=== PATIENT | male | born 1960 | race Caucasian/White ===

== ENCOUNTER 2024-07-20 13:20 | Emergency (ER) | payer MEDICARE, BC, SELFPAY ==
--- OUTSIDE RECORDS SUMMARY | 2024-07-20 13:23 | XMS_ITS | Clinical Summary ---
Author Organization [facility] Address [address] [place] [address] Care Team Providers Care Director Experimental Medicine Name Role Phone Juan Lombardi DO Primary Care Provide r Allergies No known active allergies Medications aspirin (ECOTRIN) 81 mg enteric coated tablet Take 81 mg by mouth once daily. 0 Active atorvastatin (LIPITOR) 20 mg tabletIndications: Other hyperlipidemia Take 1 Tablet (20 mg) by mouth once daily. 90 Tablet 3 5 Active lisinopriL (PRINIVIL; ZESTRIL) 40 mg tabletIndications: Essential (primary) hypertension Take 1 Tablet (40 mg) by mouth once daily. 90 Tablet 3 5 Active sertraline (ZOLOFT) 50 mg tabletIndications: Generalized anxiety disorder Take 1 Tablet (50 mg) by mouth once daily. 90 Tablet 3 5 Active amLODIPine (NORVASC) 5 mg tabletIndications: Essential (primary) hypertension Take 1 Tablet (5 mg) by mouth once daily. 90 Tablet 3 5 Active amLODIPine (NORVASC) 5 mg tabletIndications: Essential (primary) hypertension Take 1 Tablet (5 mg) by mouth once daily. 90 Tablet 3 5 07/06/19 25 Discontinu ed(Reorder (E-cancel not sent)) Active Problems Problem Noted Date Diagnosed Date Colon polyp 07/21/2023 Overview (07/21/2023): Colonoscopy 06/2023 2-TA, repeat in 5 years Hyperlipidemia 11/27/2020 Generalized anxiety disorder 11/27/2020 Essential (primary) hypertension 11/27/2020 Abnormal results of thyroid function studies 03/2020 Precordial pain 01/05/2020 Mixed hyperlipidemia 10/01/2018 Obstructive sleep apnea (adult) (pediatric) 03/22 Erectile dysfunction 04/18/2016 Kidney stones 04/16/2016 History of prostate cancer 11/07/2015 Other hyperlipidemia 11/07/2015 Encounters Date Type Department Care Team Description 07/20/2024 Nurse Triage [facility] [address] [place] [phone] Juan Lombardi, Arm Pain/problem 07/05/2024 Telephone [facility] [id number] [place] [phone] Juan Lombardi, Refill Request 07/05/2024 Refill [facility] [id number] [place] [phone] Juan Lombardi, Refill Request (Amlodipine) 06/29/2024 Refill [facility] [id number] [place] [phone] Juan Lombardi, Refill Request (Amlodipine) 05/25/2024 11:00 AM BIZTALK ADMINISTRATOR Office Visit [facility] [address] [place] [phone] Juan Lombardi, Medicare ANNUAL (subsequent) Visit (Not fasting- Gwinner juice in the morning- The patient reports having a lack of energy. No other concerns noted. ) 05/24/2024 Travel 05/04/2024 Refill [facility] [id number] [place] [phone] Juan Lombardi, Refill Request (Atorvastatin, Amlodipine) 04/28/[address] [place] [address] Juan Lombardi, DO Refill Request (Lisinopril) from Last 3 Months Immunizations Immunization Administration Dates Next Due Influenza, IIV3 (Age 6-35 mos) 05/13/2013 Influenza, IIV4 01/05/2020 Tdap 01/05/2020 Family History Medical History Relation Name Comments Cancer-prostate Father Relation Name Status Comments Father Mother Social History Tobacco Use Types Packs/Day Years Used Date Smoking Tobacco: Never Smokeless Tobacco: Never Alcohol Use Standard Drinks/Week Comments Yes 6 (1 standard drink = 0.6 oz pure alcohol) 7 or 8 drinks a week on average PHQ-2 Answer Date Recorded PHQ-2 TOTAL SCORE 1 05/25/2024 Social Connections Answer Date Recorded Do you often feel lonely or isolated from those around you? 0 05/24/2024 Financial Resource Strain Answer Date R ecorded Difficulty of Paying Living Expenses 3 05/24/2024 Difficulty of Paying Living Expenses Not on file 05/24/2024 Food Insecurity Answer Date Recorded Do you worry your food will run out before you are able to buy more? 1 05/24/2024 Transportation Needs Answer Date Record ed Does lack of transportation keep you from medica l appointments? 1 05/24/2024 Does lack of transportation keep you from work, meetings or getting things that you need? 1 05/24/2024 Housing Stability Answer Date Recorded What is your housing situation today? 1 05/24/2024 Utilities Answer Date Recorded Do you have trouble paying f or utilities (for example, heat, electricity, water, phone)? 1 05/24/2024 Sex and Gender Information Value Date Recorded Sex Assigned at Male 03/21/2023 10:44 PM BIZTALK ADMINISTRATOR Legal Sex Male 8:37 AM BIZTALK ADMINISTRATOR Gender Identity Male 03/21/2023 10:44 PM BIZTALK ADMINISTRATOR Sexual Orientation Straight 03/21/2023 10 :44 PM BIZTALK ADMINISTRATOR Obstetrics History Last Filed Vital Signs Vital Sign Reading Time Taken Comments Blood Pressure 128/80 05/25/2024 11:16 AM BIZTALK ADMINISTRATOR Pulse 68 05/25/2024 11:16 AM BIZTALK ADMINISTRATOR Temperature - - Respiratory Rate 18 07/17/2023 3:48 PM CDT Oxygen Saturation 98% 05/25/2024 11:16 AM BIZTALK ADMINISTRATOR Inhaled Oxygen Concentration - - Weight 123.8 kg (273 lb) 05/25/2024 11:16 AM BIZTALK ADMINISTRATOR Height 184.2 cm (6' 0.5) 05/25/2024 11:16 AM CS T Body Mass Index 36.52 05/25/2024 11:16 AM BIZTALK ADMINISTRATOR Plan of Treatment Upcoming Encounters Date Type Department Care Team (Late st Contact Info) Description 08/03/2024 11:00 AM CDT Office Visit [facility] [address] [place] [phone] [place] [address] [place] [address] Health Maintenance Due Date Last Done Comments Pneumococcal series for age 50+ (1 of 1 - PCV) 2009 Zoster (shingles) series for age 50+ (1 of 2) 2009 COVID-19 vaccine series ( - season) 2023 Influenza Vaccine (Season Ended) 2024 01/05/20 20, 05/13/2013 BMI (ht and wt on same day) for age 18+ 05/25/2025 05/25/2024, 07/08/2023, 03/25/2023, Additional history exists Depression screening for age 12+ 05/25/2025 05/25/2024, 05/25/2024, 03/25/2023, Additional history exists Medicare Wellness for age 65+ 05/26/2025 05/25/2024 Colonoscopy through age 75 07/16/202807/16, 07/17/2023, 07/17/2023, Additional history exists Lipids for age 45-75 05/25/2029 05/25/2024, 03/25/2023, 2022, Additional history exists Tetanus booster 01/04/2030 01/05/2020 RSV vaccine for adults or (1 - 1-dose 75+ series) 2034 Tdap Completed 01/05/2020 Hepatitis C screening for ag e 18-79 Completed 01/11/2021 HIV for age 15-65 Completed 2022 Procedures Procedure Name Priority Date/Time Associated Diagnosis Comments CBC W PLT NO DIFF Routine 05/25/2024 12: 00 AM BIZTALK ADMINISTRATOR Welcome to Medicare preventive visit COMP METABOLIC PANEL Routine 05/25/2024 12:00 AM BIZTALK ADMINISTRATOR Welcome to Medicare preventive visit LIPID PANEL W REFLEX MEASURED LDL Routine 05/25/2024 12:00 AM BIZTALK ADMINISTRATOR Other hyperlipidemia PSA TOTAL Routine 05/25/2024 12:00 AM BIZTALK ADMINISTRATOR History of prostate cancer COLONOSCOPY SCREENING Routine 07/17/2023 2:17 PM CDT History of colon polyps ANTI HIV 1/2 Routine 2022 12:35 PM BIZTALK ADMINISTRATOR Screening for HIV (human immunodeficiency virus) ANTI HCV Routine 01/11/2021 11:25 AM CDT Need for hepatitis C screening test from Last 3 Months or Most Recently Relevant to Health Maintenance Results * (ABNORMAL) LIPID PANEL W REFLEX MEASURED LDL (05/25/2024 12:00 AM BIZTALK ADMINISTRATOR) CHOLESTEROL, TOTAL 185 <200 mg/dL [facility] HDL CHOLESTEROL 43 > OR = 40 mg/dL [facility] TRIGLYCERIDES 173(H) <150 mg/dL [facility] LDL-CHOLESTEROL 113(H) mg/dL (calc) [facility] Comment: Reference range: <100 Desirable range <100 mg/dL for primary prevention; <70 mg/dL for patients with CHD or diabetic patients with > or = 2 CHD risk factors. LDL-C is now calculated using the Radha calculation, which is a validated novel method providing better accuracy than the Friedewald equation in the estimation of LDL-C. Jon PERALTA et al. OPAL. 2013;310(19): 3990-4611 (http://education.[employer].IVFXPERT/faq/QZS595) CHOL/HDLC RATIO 4.3 <5.0 (calc) [facility] NON HDL CHOLESTEROL 142(H) <130 mg/dL (calc) [facility] Comment: For patients with diabetes plus 1 major ASCVD risk factor, treating to a non-HDL-C goal of <100 mg/dL (LDL-C of <70 mg/dL) is considered a therapeutic option. Blood BLOOD SPECIMEN / Unknown 05/25/2024 05/25/2024 11:59 AM BIZTALK ADMINISTRATOR Narrative [facility] - 05/26/2024 5:36 AM BIZTALK ADMINISTRATOR MULTIPLE TESTING PRIORITIES; ROUTINE TESTING TO FOLLOW. [employer] [facility] DO CHEMISTRY Final Result [facility] [address] [place] [address], [facility] [address] [place] [address] * CBC W PLT NO DIFF (05/25/2024 12:00 AM BIZTALK ADMINISTRATOR) WHITE BLOOD CELL COUNT 5.9 3.8 - 10.8 Thousand/u L [facility] (U RED BLOOD CELL COUNT 4.66 4.20 - 5.80 Million/uL [facility] (U HEMOGLOBIN 14.8 13.2 - 17.1 g/dL [facility] (U HEMATOCRIT 43.7 38.5 - 50.0 % [facility] (U MCV 93.8 80.0 - 100.0 fL [facility] (U MCH 31.8 27.0 - 33.0 pg [facility] (U MCHC 33.9 32.0 - 36.0 g/dL [facility] (U Comment: For adults, a slight decrease in the calculated MCHC value (in the range of 30 to 32 g/dL) is most likely not clinically significant; however, it should be interpreted with caution in correlation with other red cell parameters and the patient's clinical condition. RDW 12.6 11.0 - 15.0 % [facility] (U PLATELET COUNT 206 140 - 400 Thousand/u L [facility] (U MPV 8.5 7.5 - 12.5 fL [facility] (U Blood BLOOD SPECIMEN / Unknown 05/25/2024 05/25/2024 12:00 PM BIZTALK ADMINISTRATOR Narrative [facility] - 05/25/2024 12:41 PM BIZTALK ADMINISTRATOR SPLIT 05/25/2024 FROM [id number] [employer] [facility]) DO HEMATOLOGY Final Result [facility] [address] [place] [address], [facility] (U [address] [place] [address] * PSA TOTAL (05/25/2024 12:00 AM BIZTALK ADMINISTRATOR) [facility] PSA, TOTAL <0.04 < OR = 4.00 ng/mL [facility] Comment: The total PSA value from this assay system is standardized against the WHO standard. The test result will be approximately 20% lower when compared to the equimolar-standardized total PSA (Dejon Taft). Comparison of serial PSA results should be interpreted with this fact in mind. This test was performed using the Siemens chemiluminescent method. Values obtained from different assay methods cannot be used interchangeably. PSA levels, regardless of value, should not be interpreted as absolute evidence of the presence or absence of disease. Blood BLOOD SPECIMEN / Unknown 05/25/2024 05/25/2024 11:59 AM BIZTALK ADMINISTRATOR Narrative [facility] - 05/26/2024 4:39 AM BIZTALK ADMINISTRATOR MULTIPLE TESTING PRIORITIES; ROUTINE TESTING TO FOLLOW. [employer] DO CHEMISTRY Final Result [employer] [facility] [address] [place] [address], [facility] [address] [place] [address] * COMP METABOLIC PANEL (05/25/2024 12:00 AM BIZTALK ADMINISTRATOR) GLUCOSE 96 65 - 99 mg/dL [facility] Comment: Fasting reference interval UREA NITROGEN (BUN) 17 7 - 25 mg/dL [facility] CREATININE 0.84 0.70 - 1.35 mg/dL [facility] EGFR 97 > OR = 60 mL/min/1. 73m2 [facility] BUN/CREATININE RATIO SEE NOTE: 6 - (calc) [facility] Comment: Not Reported: BUN and Creatinine are within reference range. SODIUM 142 135 - 146 mmol/L [facility] POTASSIUM 3.8 3.5 - 5.3 mmol/L [facility] CHLORIDE 107 98 - 110 mmol/L [facility] CARBON DIOXIDE 21 20 - 32 mmol/L [facility] CALCIUM 9.4 8.6 - 10.3 mg/dL [facility] PROTEIN, TOTAL 7.3 6.1 - 8.1 g/dL [facility] ALBUMIN 4.7 3.6 - 5.1 g/dL [facility] GLOBULIN 2.6 1.9 - 3.7 g/dL (calc) [facility] ALBUMIN/GLOBULIN RATIO 1.8 1.0 - 2.5 (calc) [facility] BILIRUBIN, TOTAL 0.7 0.2 - 1.2 mg/dL [facility] ALKALINE PHOSPHATASE 72 35 - 144 U/L [facility] AST 25 10 - 35 U/L [facility] ALT 24 9 - 46 U/L [facility] Blood BLOOD SPECIMEN / Unknown 05/25/2024 05/25/2024 11:59 AM BIZTALK ADMINISTRATOR Narrative [facility] - 05/26/2024 5:36 AM BIZTALK ADMINISTRATOR MULTIPLE TESTING PRIORITIES; ROUTINE TESTING TO FOLLOW. [facility] Valenzuela Steichen DO CHEMISTRY Final Result [facility] [address] [place] [address], [facility] [address] [place] [address] * COLONOSCOPY (07/17/2023 2:27 PM CDT) 07/17/2023 2:27 PM CDT Narrative Transcriptions Jon Olivier MD - 07/17/2023 3:35 PM CDT Patient Name: Baldev Field Procedure Date: 07/17/2023 Gender: Male Date of : 1960 Admit Type: Outpatient Procedure: Colonoscopy Proceduralist: Jon Olivier MD , Margareth Robert, RN(Nurse), Tania Cortes (Nurse) Referring MD: Juan Lombardi Indications/Pre-Op Diagnosis: High risk colon cancer surveillance:Personal history of colonic polyps, Last colonoscopy: date unknown (unable to locate lastcolonoscopy report) Medications: Fentanyl 100 micrograms IV, Midazolam 4 mgIV, The level of sedation administered wasmoderate Procedure Description: The patient had risks, benefits and alternatives explained to andgave informed consent. The patient had a stable cardiopulmonary status and judged an adequate candidate for conscious sedation. The endoscope [id number] was passed through the anus andadvanced to the cecum, identified by appendiceal orifice and ileocecal valve.The colonoscopy was performed without difficulty. The patient toleratedthe procedure well. The quality of the bowel preparation was good. The ileocecal valve, appendiceal orifice, and rectum were photographed. Complications: No immediate complications. Estimated Blood Loss & Specimen: Estimated blood loss: none. Specimen collected - Yes and sent to Laboratory Findings: The perianal and digital rectal examinations were normal. A 2 mm polyp was found in the ascending colon. The polyp was sessile. The polyp was removed with a cold biopsy forceps. Resection and retrieval were complete. A 3 mm polyp was found in the transverse colon. The polyp wassessile. The polyp was removed with a cold snare. Resection and retrieval were complete. The exam was otherwise without abnormality on direct and retroflexion views. Impressions/Post-Op Diagnosis: - One 2 mm polyp in the ascending colon, removed with a cold biopsy forceps. Resected and retrieved. - One 3 mm polyp in the transverse colon, removed with a cold snare. Resected and retrieved. - The examination was otherwise normal on direct and retroflexionviews. Recommendation: - Patient has a contact number available for emergencies. The signsand symptoms of potential delayed complications were discussed with the patient. Return to normal activities tomorrow. Written discharge instructions were provided to the patient. - Resume previous diet. - Continue present medications. - Await pathology results. - Repeat colonoscopy is recommended. The colonoscopy date will be determined after pathology results from today's exam become available for review. Moderate Sedation: A time out was performed before the procedure. Moderate (conscious) sedation was administered by the endoscopy nurse and supervised bythe endoscopist. The following parameters were monitored: oxygensaturation, heart rate, blood pressure, EKG, CO2, respiratory rate, adequacy of pulmonary ventilation and reponse to care. Please refer to the patient's medical record flowsheets and nursing notes for moderate sedation details. Total physician intraservice time was 21 minutes. Jon Olivier MD 07/17/2023 3:35:32 PM This report has been signed electronically. Note Initiated On: 07/17/2023 2:27 PM Procedure Code(s): --- Professional --- 83286, Colonoscopy, flexible; with removalof tumor(s), polyp(s), or other lesion(s) bysnare technique 20715, 59, Colonoscopy, flexible; withbiopsy, single or multiple Diagnosis Code(s): --- Professional --- Z86.010, Personal history of colonicpolyps D12.2, Benign neoplasm of ascending colon D12.3, Benign neoplasm of transverse colon (hepatic flexure or splenic flexure) CPT copyright 2021 [employer]. All rights reserved. The codes documented in this report are preliminary and upon hole digger truck driver reviewmay be revised to meet current compliance requirements. Scope In: 3:08:32 PM Scope Withdrawal Time 0 hours 12 minutes 23 seconds Scope Out: 3:25:26 PM Jon Olivier MD PROCEDURE ORD Final Res ult * ANTI HIV 1/2 [35481.0] (2022 12:35 PM BIZTALK ADMINISTRATOR) HIV-1/HIV-2 ANTIBODY Non-Reacti ve Non-Reacti ve 03/19/2022 11:22 AM BIZTALK ADMINISTRATOR [facility] Comment:HIV-1 p24 and HIV-1/ HIV-2 Ab not detected. Blood BLOOD SPECIMEN / Unknown Venipuncture / Unknown 2022 12:35 PM BIZTALK ADMINISTRATOR 2022 12:35 PM BIZTALK ADMINISTRATOR Juan Lombardi DO SEND OUTS Final Result [facility] [address] [place] [address], * ANTI HCV (01/11/2021 11:25 AM CDT) HEPATITIS C ANTIBODY Non-React jose Non-React jose 01/11/2021 10:36 PM CDT [facility] Comment:Antibodies to HCV no t detected; does not exclude the possibility of exposure to HCV. Blood BLOOD SPECIMEN / Unknown Venipuncture / Unknown 01/11/2021 11:25 AM CDT 01/11/2021 11:26 AM CDT Juan Lombardi DO SEND OUTS Final Result [facility] [address] [place] [address], [place] from Last 3 Months or Most Recently Relevant to Health Maintenance Insurance MEDICARE [place] ONLY Care Teams Director Experimental Medicine Relationship Specialty [place] [address] [place] [address] PCP - General Family Practice 01/10/21
[2024-07-20 14:18] VITALS: BP 206/113; PULSE 67; RESP 18; TEMP 37; O2SAT 97; BMI 36.3
--- NOTE | 2024-07-20 15:34 | ED.GENADULT ---
HPI - General Adult General Chief complaint: Extremity Pain/Injury, Upper Stated complaint: possible blood clot R arm Time Seen by Provider: 07/20/24 15:25 History of Present Illness HPI narrative: Patient presents to the emergency department complaining of right arm pain. Patient states the pain started 07/09. Patient states he was helping his son move and the next day noticed some right arm pain. Arm pain is intermittent and is concentrated in the antecubital. Pain gets better with heat and Tylenol. This pain is worse when he rotates his arm over. He is able to move his arm otherwise without pain. Triage nurse sent him to ER for blood clot rule out. 64-year-old man presenting to the emergency department with concern of right arm pain. He has pain particularly with rotation of the forearm in the anterior upper forearm just below the antecubital fossa and sometimes will get a shoot of pain that goes down his arm. He had been helping his son move little over week ago in in the next day or so noted more pain in this area. Does not recall specific injury. Just been moving some boxes and none were particularly heavy. He has been applying heat and acetaminophen. The former seems to help a little bit. Not sure that it is swollen. Related Data Home Medications ?Medication ?Instructions ?Recorded ?Confirmed atorvastatin 20 mg tablet 20 mg PO 04/08/22 06/13/24 lisinopril 10 mg tablet 10 mg PO QDAY 04/08/22 07/20/24 sertraline 50 mg tablet 50 mg PO QDAY 04/08/22 07/20/24 amlodipine 5 mg tablet 5 mg PO DAILY 11/21/22 07/20/24 Allergies Allergy/AdvReac Type Severity Reaction Status Date / Time No Known Drug Allergies Allergy Verified 07/20/24 14:28 Review of Systems Status of ROS: Reports: 6 or more systems reviewed and unremarkable except as noted in History and below [facility] Social History Smoking Status: Never smoker How often do you have a drink containing alcohol: 4 or more times a week How many standard drinks containing alcohol do you have on a typical day: 1 or 2 AUDIT-C Alcohol total score: 4 Non-prescribed substance use: denies use Exam Narrative: Exam Narrative: Pleasant. NAD. Good energy. Tall. Moving all extremities without difficulty. Does not have discrete pain to palpation over the lateral or medial epicondyle of the right elbow. Vaguely reproducible pain to deep palpation in the antecubital fossa; just a little distal to that. Pain seems to be most reproduced with pronation of the forearm a little bit with supination. 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 No swelling or distal edema. No areas of erythema. Pain is not reproducible to palpation in the ulnar groove. Is well-perfused distally. Const: Vital Signs, click to edit/add: Vital Signs - 24 hr 07/20/24 14:18 Temperature 98.6 F Pulse Rate [Right Pulse Oximeter] 67 Respiratory Rate 18 Blood Pressure [Le ft Forearm] 206/113 H Pulse Oximetry 97 Oxygen Delivery Me thod Room Air Documenting provider has reviewed patient's vital signs: yes Course Vital Signs Vital signs: Initial Vital Signs Temperature 98.6 F 07/20/24 14:18 Temperature Source Temporal Artery Scan 07/20/24 14:18 Pulse Rate 67 07/20/24 14:18 Pulse Rhythm Regular 07/20/24 14:18 Pulse Strength 3+ Normal 07/20/24 14:18 Respiratory Rate 18 07/20/24 14:18 Blood Pressure 206/113 H 07/20/24 14:18 Blood Pressure Mean 144 H 07/20/24 14:18 Blood Pressure Position Sitting 07/20/24 14:18 Pulse Oximetry 97 07/20/24 14:18 Oxygen Delivery Method Room Air 07/20/24 14:18 Vital Signs Temperature 98.6 F 07/20/24 14:18 Pulse Rate 67 07/20/24 14:18 Respiratory Rate 18 07/20/24 14:18 Blood Pressure 206/113 H 07/20/24 14:18 Pulse Oximetry 97 07/20/24 14:18 Oxygen Delivery Method Room Air 07/20/24 14:18 Temperature 98.6 F 07/20/24 14:18 Pulse Rate 67 07/20/24 14:18 Respiratory Rate 18 07/20/24 14:18 Blood Pressure 206/113 H 07/20/24 14:18 Pulse Oximetry 97 07/20/24 14:18 Oxygen Delivery Method Room Air 07/20/24 14:18 Medical Decision Making MDM Narrative Medical decision making narrative: Symptoms seem inconsistent with medial or lateral epicondylitis which is what I was anticipating. Possible there is an avulsion fracture in here somewhere. Otherwise distant elbow strain/tendinopathy perhaps. Not clearly a capsulitis nor olecranon bursitis. I think unlikely that has a venous thrombus. I do appreciate elevated blood pressure upon arrival here. He acknowledges historical difficulty. Can do an x-ray looking for maybe a radial head fracture though I think this is unlikely or any evidence of an avulsion fracture otherwise. Ordered for ice pack as well. I placed this with an Radu wrap. He clearly prefers heat. I did independently review two-view of the right elbow. There is a spur off the olecranon process. But I do not appreciate other abnormality. Radiology over-read below Indication: MID ANTECUBITAL AND LITTLE DISTAL AREA PAIN, WORSE W/ ROTATION Technique: Right elbow 2 views Comparison: None Findings: Bones: Alignment is normal. No fractures or bone lesions. Medium-sized distal triceps enthesophyte. Joint spaces: Joint spaces are well maintained. No sign of joint effusion. Soft tissues: Unremarkable. Impression: No acute fracture or dislocation. Dictated by Jarod Claire MD @ 07/20/2024 4:24:34 PM We discussed continuing at with the venous ultrasound though mutually agreed to defer if necessary. See patient discharge plan for further discussion I would consider icing your elbow a couple of times daily over the next few days. I like those ice bags with the screw top lids. Fill with ice and water. Can take 400-600 mg ibuprofen 3 times daily maybe with a little food over the next few days. Alternative to that would be up to 375 mg naproxen 2 times daily. Where this arm sling for comfort over this next week. See handout on some stretches or exercises that I think might be helpful. Giving you this handout on elbow sprain for lack of better options. Be seen sooner for marked increase in persistent pain, increasing swelling downstream so to speak. Please follow-up your blood pressure soon in primary care. Medical Records Medical records reviewed: Yes I reviewed the patient's medical records Discharge Plan Discharge Clinical Impression: Elbow pain Patient Disposition: Home, Self-Care Condition: Stable Additional Instructions: I would consider icing your elbow a couple of times daily over the next few days. I like those ice bags with the screw top lids. Fill with ice and water. Can take 400-600 mg ibuprofen 3 times daily maybe with a little food over the next few days. Alternative to that would be up to 375 mg naproxen 2 times daily. Wear this arm sling for comfort over this next week. See handout on some stretches or exercises that I think might be helpful. Giving you this handout on elbow sprain for lack of better options. Be seen sooner for marked increase in persistent pain, increasing swelling downstream so to speak. Please follow-up your blood pressure soon in primary care. Prescriptions: No Action atorvastatin 20 mg tablet 20 mg PO lisinopril 10 mg tablet 10 mg PO QDAY sertraline 50 mg tablet 50 mg PO QDAY amlodipine 5 mg tablet 5 mg PO DAILY Follow Up/Referrals: Provider,Not a Local [Primary Care Provider] - Stand Alone Forms: Experience Headphones Info Instructions
--- NOTE | 2024-07-20 15:52 | CRLHL7_ITS ---
For Patients: As a result of the Century Cures Act, medical imaging exams and procedure reports are released immediately into your electronic medical record. You may view this report before your referring provider. If you have questions, please contact your health care provider. Indication: MID ANTECUBITAL AND LITTLE DISTAL AREA PAIN, WORSE W/ ROTATION Technique: Right elbow 2 views Comparison: None Findings: Bones: Alignment is normal. No fractures or bone lesions. Medium-sized distal triceps enthesophyte. Joint spaces: Joint spaces are well maintained. No sign of joint effusion. Soft tissues: Unremarkable. Impression: No acute fracture or dislocation. Dictated by Jarod Claire MD @ 07/20/2024 4:24:34 PM (Electronically Signed)
--- OUTSIDE RECORDS SUMMARY | 2024-07-20 16:18 | XMS_ITS | Clinical Summary ---
Author Organization [facility] Address [address] [place] [id number] Care Team Providers Care Flash Developer Name Role Phone Juan Lombardi DO Primary [...] Department Care Team Description 07/20/2024 Nurse Triage [facility] [id number] [place] [phone] Juan Lombardi, Arm Pain/problem 07/05/2024 Telephone [facility] [id number] [place] [phone] Juan Lombardi, Refill Request 07/05/2024 Refill [facility] [id number] [place] [phone] Juan Lombardi, Refill Request (Amlodipine) 06/29/2024 Refill [facility] [id number] [place] [phone] Juan Lombardi, Refill Request (Amlodipine) 05/25/2024 11:00 AM UPHOLSTERY AUTO TRIMMER Office Visit [facility] [id number] [place] [phone] Juan Lombardi, Medicare ANNUAL (subsequent) Visit (Not fasting- [place] juice in the morning- The patient reports having a lack of energy. No other concerns noted. ) 05/24/2024 Travel 05/04/2024 Refill [facility] [address] [place] [phone] Juan Lombardi, Refill Request (Atorvastatin, Amlodipine) 04/28/[address] [place] [address] Juan Lombardi, DO Refill Request (Lisinopril) from [...] Sex Assigned at Male 03/21/2023 10:44 PM UPHOLSTERY AUTO TRIMMER Legal Sex Male 8:37 AM UPHOLSTERY AUTO TRIMMER Gender Identity Male 03/21/2023 10:44 PM UPHOLSTERY AUTO TRIMMER Sexual Orientation Straight 03/21/2023 10 :44 PM UPHOLSTERY AUTO TRIMMER Obstetrics History Last Filed Vital Signs Vital Sign Reading Time Taken Comments Blood Pressure 128/80 05/25/2024 11:16 AM UPHOLSTERY AUTO TRIMMER Pulse 68 05/25/2024 11:16 AM UPHOLSTERY AUTO TRIMMER Temperature - - Respiratory Rate 18 07/17/2023 3:48 PM CDT Oxygen Saturation 98% 05/25/2024 11:16 AM UPHOLSTERY AUTO TRIMMER Inhaled Oxygen Concentration - - Weight 123.8 kg (273 lb) 05/25/2024 11:16 AM UPHOLSTERY AUTO TRIMMER Height 184.2 cm (6' 0.5) 05/25/2024 11:16 AM CS T Body Mass Index 36.52 05/25/2024 11:16 AM UPHOLSTERY AUTO TRIMMER Plan of Treatment Upcoming Encounters Date Type Department Care Team (Late st Contact Info) Description 08/03/2024 11:00 AM CDT Office Visit [facility] [address] [place] [phone] [place] [address] [place] [address] Health Maintenance Due Date Last [...] NO DIFF Routine 05/25/2024 12: 00 AM UPHOLSTERY AUTO TRIMMER Welcome to Medicare preventive visit COMP METABOLIC PANEL Routine 05/25/2024 12:00 AM UPHOLSTERY AUTO TRIMMER Welcome to Medicare preventive visit LIPID PANEL W REFLEX MEASURED LDL Routine 05/25/2024 12:00 AM UPHOLSTERY AUTO TRIMMER Other hyperlipidemia PSA TOTAL Routine 05/25/2024 12:00 AM UPHOLSTERY AUTO TRIMMER History of prostate cancer COLONOSCOPY SCREENING Routine 07/17/2023 2:17 PM CDT History of colon polyps ANTI HIV 1/2 Routine 2022 12:35 PM UPHOLSTERY AUTO TRIMMER Screening for HIV (human immunodeficiency virus) ANTI HCV Routine 01/11/2021 11:25 AM CDT Need for hepatitis C screening test from Last 3 Months or Most Recently Relevant to Health Maintenance Results * (ABNORMAL) LIPID PANEL W REFLEX MEASURED LDL (05/25/2024 12:00 AM UPHOLSTERY AUTO TRIMMER) CHOLESTEROL, TOTAL 185 <200 mg/dL [facility] HDL CHOLESTEROL 43 > OR = 40 mg/dL [email or web address] TRIGLYCERIDES 173(H) <150 mg/dL [facility] [...] LDL-C. Jon PERALTA et al. OPAL. 2013;310(19): 0560-1982 (http://education.Netstory.Ezuza/faq/KLL355) CHOL/HDLC RATIO 4.3 <5.0 (calc) [facility] NON HDL CHOLESTEROL 142(H) <130 mg/dL (calc) [facility] Comment: For patients with diabetes plus 1 major ASCVD risk factor, treating to a non-HDL-C goal of <100 mg/dL (LDL-C of <70 mg/dL) is considered a therapeutic option. Blood BLOOD SPECIMEN / Unknown 05/25/2024 05/25/2024 11:59 AM UPHOLSTERY AUTO TRIMMER Narrative [facility] - 05/26/2024 5:36 AM UPHOLSTERY AUTO TRIMMER MULTIPLE TESTING PRIORITIES; ROUTINE TESTING TO FOLLOW. [facility] DO CHEMISTRY Final Result [facility] [address] [place] [address], [facility] [address] [place] [address] * CBC W PLT NO DIFF (05/25/2024 12:00 AM UPHOLSTERY AUTO TRIMMER) WHITE BLOOD CELL COUNT 5.9 3.8 - 10.8 Thousand/u L [facility] (U RED BLOOD CELL COUNT 4.66 4.20 - 5.80 Million/uL [facility] (U HEMOGLOBIN 14.8 13.2 - 17.1 g/dL [facility] (U HEMATOCRIT 43.7 38.5 - 50.0 % [facility] (U MCV 93.8 80.0 - 100.0 fL [facility] (U MCH 31.8 27.0 - 33.0 pg [facility] (U MCHC 33.9 32.0 - 36.0 g/dL [facility] (U Comment: For adults, a slight decrease in the calculated MCHC value (in the range of 30 to 32 g/dL) is most likely not clinically significant; however, it should be interpreted with caution in correlation with other red cell parameters and the patient's clinical condition. RDW 12.6 11.0 - 15.0 % [facility] (U PLATELET COUNT 206 140 - 400 Thousand/u L [facility] (U MPV 8.5 7.5 - 12.5 fL [facility] (U Blood BLOOD SPECIMEN / Unknown 05/25/2024 05/25/2024 12:00 PM UPHOLSTERY AUTO TRIMMER Narrative [facility] - 05/25/2024 12:41 PM UPHOLSTERY AUTO TRIMMER SPLIT 05/25/2024 FROM [id number] [facility] DO HEMATOLOGY Final Result [facility] [address] [place] [address], [facility] (U [address] [place] [address] * PSA TOTAL (05/25/2024 12:00 AM UPHOLSTERY AUTO TRIMMER) [facility] PSA, TOTAL <0.04 < OR = 4.00 ng/mL [facility] Comment: The total PSA value from this assay system is standardized against the WHO standard. The test result will be approximately 20% lower when compared to the equimolar-standardized total PSA ([facility]). Comparison of serial PSA results should be interpreted with this fact in mind. This test was performed using the Siemens chemiluminescent method. Values obtained from different assay methods cannot be used interchangeably. PSA levels, regardless of value, should not be interpreted as absolute evidence of the presence or absence of disease. Blood BLOOD SPECIMEN / Unknown 05/25/2024 05/25/2024 11:59 AM UPHOLSTERY AUTO TRIMMER Narrative [facility] - 05/26/2024 4:39 AM UPHOLSTERY AUTO TRIMMER MULTIPLE TESTING PRIORITIES; ROUTINE TESTING TO FOLLOW. [employer] DO CHEMISTRY Final Result [employer] [facility] [address] [place] [address], [facility] [address] [place] [address] * COMP METABOLIC PANEL (05/25/2024 12:00 AM UPHOLSTERY AUTO TRIMMER) GLUCOSE 96 65 - 99 mg/dL [facility] [...] SPECIMEN / Unknown 05/25/2024 05/25/2024 11:59 AM UPHOLSTERY AUTO TRIMMER Narrative [facility] - 05/26/2024 5:36 AM UPHOLSTERY AUTO TRIMMER MULTIPLE TESTING PRIORITIES; ROUTINE TESTING TO FOLLOW. [facility] Valenzuela Steichen DO CHEMISTRY Final Result [facility] [address] [place] [address], [facility] [address] [place] [address] * COLONOSCOPY (07/17/2023 2:27 PM CDT) 07/17/2023 [...] adequate candidate for conscious sedation. The endoscope [id number] was passed through the anus andadvanced to [...] 2:27 PM Procedure Code(s): --- Professional --- 00848, Colonoscopy, flexible; with removalof tumor(s), polyp(s), or other lesion(s) bysnare technique 48371, 59, Colonoscopy, flexible; withbiopsy, single or multiple Diagnosis Code(s): --- Professional --- Z86.010, Personal history of colonicpolyps D12.2, Benign neoplasm of ascending colon D12.3, Benign neoplasm of transverse colon (hepatic flexure or splenic flexure) CPT copyright 2021 [employer]. All rights reserved. The codes documented in this report are preliminary and upon theatre professor reviewmay be revised to meet current compliance requirements. Scope In: 3:08:32 PM Scope Withdrawal Time 0 hours 12 minutes 23 seconds Scope Out: 3:25:26 PM Jon Olivier MD PROCEDURE ORD Final Res ult * ANTI HIV 1/2 [21438.0] (2022 12:35 PM UPHOLSTERY AUTO TRIMMER) HIV-1/HIV-2 ANTIBODY Non-Reacti ve Non-Reacti ve 03/19/2022 11:22 AM UPHOLSTERY AUTO TRIMMER [facility] Comment:HIV-1 p24 and HIV-1/ HIV-2 Ab not detected. Blood BLOOD SPECIMEN / Unknown Venipuncture / Unknown 2022 12:35 PM UPHOLSTERY AUTO TRIMMER 2022 12:35 PM UPHOLSTERY AUTO TRIMMER Juan Lombardi DO SEND OUTS Final Result [facility] [address] [place] [address], * ANTI HCV (01/11/2021 11:25 AM CDT) HEPATITIS C ANTIBODY Non-React jose Non-React jose 01/11/2021 10:36 PM CDT [facility] Comment:Antibodies to HCV no t detected; does not exclude the possibility of exposure to HCV. Blood BLOOD SPECIMEN / Unknown Venipuncture / Unknown 01/11/2021 11:25 AM CDT 01/11/2021 11:26 AM CDT Juan Lombardi DO SEND OUTS Final Result [facility] [address] [place] [address], [place] from Last 3 Months or Most Recently Relevant to Health Maintenance Insurance MEDICARE [place] ONLY Care Teams Flash Developer Relationship Specialty [place] [id number] [place] [address] PCP - General Family Practice 01/10/21
== END 2024-07-20 17:23 | disposition home or self-care (01) ==
PROVIDERS: Emergency Provider Family Medicine
DX: M25.521 Pain in right elbow (principal); X50.1XXA Overexertion from prolonged static or awkward postures, initial encounter
CPT/HCPCS: 73070; 99283; 99284

== ENCOUNTER 2024-07-27 16:21 | Emergency (ER) | payer MEDICARE, BC, SELFPAY ==
[2024-07-27 16:31] VITALS: BP 166/86; PULSE 74; RESP 18; TEMP 36.7; O2SAT 99; BMI 36.3
--- NOTE | 2024-07-27 16:37 | CRLHL7_ITS ---
For Patients: As a result of the Century Cures Act, medical imaging exams and procedure reports are released immediately into your electronic medical record. You may view this report before your referring provider. If you have questions, please contact your health care provider. INDICATION: Forearm pain, shortness of breath TECHNIQUE: Ultrasound venous duplex upper right extremity. Compression venous exam was performed using godoe-scale, color Doppler, and spectral Doppler imaging. COMPARISON: None. FINDINGS: The right internal jugular, subclavian, and axillary veins are patent with normal waveforms. The brachial, basilic, and cephalic veins are fully compressible. No soft tissue abnormalities seen. IMPRESSION: Normal ultrasound of the right upper extremity veins. Dictated by Boaz Mojica MD @ 07/27/2024 5:44:27 PM (Electronically Signed)
--- OUTSIDE RECORDS SUMMARY | 2024-07-27 16:59 | XMS_ITS | Clinical Summary ---
Author Organization [employer] [facility] Address [address] [place] [address] Care Team Providers Care Yardage Control Operator Name Role Phone Juan Lombardi DO Primary [...] Department Care Team Description 07/20/2024 Nurse Triage [facility] [id number] [place] [phone] Juan Lombardi, Arm Pain/problem 07/05/2024 Telephone [facility] [id number] [place] [phone] Juan Lombardi, Refill Request 07/05/2024 Refill [facility] [id number] [place] [phone] Juan Lombardi, Refill Request (Amlodipine) 06/29/2024 Refill [facility] [id number] [place] [phone] Juan Lombardi, Refill Request (Amlodipine) 05/25/2024 11:00 AM HATCHERY MANAGER Office Visit [facility] [id number] [place] [phone] Juan Lombardi, Medicare ANNUAL (subsequent) Visit (Not fasting- [place] juice in the morning- The patient reports having a lack of energy. No other concerns noted. ) 05/24/2024 Travel 05/04/2024 Refill [facility] [id number] [place] [phone] Juan Lombardi, Refill Request (Atorvastatin, Amlodipine) 04/28/[address] [place] [place] [address] Juan Lombardi, DO Refill Request (Lisinopril) from [...] Sex Assigned at Male 03/21/2023 10:44 PM HATCHERY MANAGER Legal Sex Male 8:37 AM HATCHERY MANAGER Gender Identity Male 03/21/2023 10:44 PM HATCHERY MANAGER Sexual Orientation Straight 03/21/2023 10 :44 PM HATCHERY MANAGER Obstetrics History Last Filed Vital Signs Vital Sign Reading Time Taken Comments Blood Pressure 128/80 05/25/2024 11:16 AM HATCHERY MANAGER Pulse 68 05/25/2024 11:16 AM HATCHERY MANAGER Temperature - - Respiratory Rate 18 07/17/2023 3:48 PM CDT Oxygen Saturation 98% 05/25/2024 11:16 AM HATCHERY MANAGER Inhaled Oxygen Concentration - - Weight 123.8 kg (273 lb) 05/25/2024 11:16 AM HATCHERY MANAGER Height 184.2 cm (6' 0.5) 05/25/2024 11:16 AM CS T Body Mass Index 36.52 05/25/2024 11:16 AM HATCHERY MANAGER Plan of Treatment Upcoming Encounters Date Type Department Care Team (Late st Contact Info) Description 08/03/2024 11:00 AM CDT Office Visit [facility] [address] [place] [phone] [place] [address] [place] [address] Health Maintenance Due Date Last [...] NO DIFF Routine 05/25/2024 12: 00 AM HATCHERY MANAGER Welcome to Medicare preventive visit COMP METABOLIC PANEL Routine 05/25/2024 12:00 AM HATCHERY MANAGER Welcome to Medicare preventive visit LIPID PANEL W REFLEX MEASURED LDL Routine 05/25/2024 12:00 AM HATCHERY MANAGER Other hyperlipidemia PSA TOTAL Routine 05/25/2024 12:00 AM HATCHERY MANAGER History of prostate cancer COLONOSCOPY SCREENING Routine 07/17/2023 2:17 PM CDT History of colon polyps ANTI HIV 1/2 Routine 2022 12:35 PM HATCHERY MANAGER Screening for HIV (human immunodeficiency virus) ANTI HCV Routine 01/11/2021 11:25 AM CDT Need for hepatitis C screening test from Last 3 Months or Most Recently Relevant to Health Maintenance Results * (ABNORMAL) LIPID PANEL W REFLEX MEASURED LDL (05/25/2024 12:00 AM HATCHERY MANAGER) CHOLESTEROL, TOTAL 185 <200 mg/dL [facility] HDL CHOLESTEROL 43 > OR = 40 mg/dL [facility] TRIGLYCERIDES 173(H) <150 mg/dL [facility] LDL-CHOLESTEROL 113(H) mg/dL (calc) [facility] [...] LDL-C. Jon PERALTA et al. OPAL. 2013;310(19): 8143-3592 (http://education.sofatutor.The Box/faq/YDD243) CHOL/HDLC RATIO 4.3 <5.0 (calc) [facility] NON HDL CHOLESTEROL 142(H) <130 mg/dL (calc) [facility] Comment: For patients with diabetes plus 1 major ASCVD risk factor, treating to a non-HDL-C goal of <100 mg/dL (LDL-C of <70 mg/dL) is considered a therapeutic option. Blood BLOOD SPECIMEN / Unknown 05/25/2024 05/25/2024 11:59 AM HATCHERY MANAGER Narrative [facility] - 05/26/2024 5:36 AM HATCHERY MANAGER MULTIPLE TESTING PRIORITIES; ROUTINE TESTING TO FOLLOW. [employer] [facility] DO CHEMISTRY Final Result [facility] [address] [place] [phone], [employer] [facility] [address] [place] [address] * CBC W PLT NO DIFF (05/25/2024 12:00 AM HATCHERY MANAGER) WHITE BLOOD CELL COUNT 5.9 3.8 - 10.8 Thousand/u L [facility] (U RED BLOOD CELL COUNT 4.66 4.20 - 5.80 Million/uL [facility] (U HEMOGLOBIN 14.8 13.2 - 17.1 g/dL [facility] (U HEMATOCRIT 43.7 38.5 - 50.0 % [facility] (U MCV 93.8 80.0 - 100.0 fL [facility] (U MCH 31.8 27.0 - 33.0 pg [facility] (U MCHC 33.9 32.0 - 36.0 g/dL [facility] (U Comment: For adults, a slight decrease in the calculated MCHC value (in the range of 30 to 32 g/dL) is most likely not clinically significant; however, it should be interpreted with caution in correlation with other red cell parameters and the patient's clinical condition. RDW 12.6 11.0 - 15.0 % [facility] (U PLATELET COUNT 206 140 - 400 Thousand/u L [facility] (U MPV 8.5 7.5 - 12.5 fL [facility] (U Blood BLOOD SPECIMEN / Unknown 05/25/2024 05/25/2024 12:00 PM HATCHERY MANAGER Narrative [facility] - 05/25/2024 12:41 PM HATCHERY MANAGER SPLIT 05/25/2024 [facility] [id number] [facility] HEMATOLOGY Final Result [facility] [address] [facility] [place] [address], [facility] (U [address] [place] [address] * PSA TOTAL (05/25/2024 12:00 AM HATCHERY MANAGER) [facility] PSA, TOTAL <0.04 < OR = 4.00 ng/mL [employer] [facility]enn[facility] Comment: The total PSA value from this assay system is standardized against the WHO standard. The test result will be approximately 20% lower when compared to the equimolar-standardized total PSA ([place]jon [place]). Comparison of serial PSA results should be interpreted with this fact in mind. This test was performed using the Siemens chemiluminescent method. Values obtained from different assay methods cannot be used interchangeably. PSA levels, regardless of value, should not be interpreted as absolute evidence of the presence or absence of disease. Blood BLOOD SPECIMEN / Unknown 05/25/2024 05/25/2024 11:59 AM HATCHERY MANAGER Narrative [facility] - 05/26/2024 4:39 AM HATCHERY MANAGER MULTIPLE TESTING PRIORITIES; ROUTINE TESTING TO FOLLOW. [employer] DO CHEMISTRY Final Result [employer] [facility] [address] [place] [address], [facility] [address] [place] [address] * COMP METABOLIC PANEL (05/25/2024 12:00 AM HATCHERY MANAGER) GLUCOSE 96 65 - 99 mg/dL [facility] [...] SPECIMEN / Unknown 05/25/2024 05/25/2024 11:59 AM HATCHERY MANAGER Narrative [facility] - 05/26/2024 5:36 AM HATCHERY MANAGER MULTIPLE TESTING PRIORITIES; ROUTINE TESTING TO FOLLOW. [facility] Valenzuela Steichen DO CHEMISTRY Final Result [facility] [address] [place] [address], [facility] [address] [place] [address] * COLONOSCOPY (07/17/2023 2:27 PM CDT) 07/17/2023 [...] adequate candidate for conscious sedation. The endoscope [id number] was passed through the anus andadvanced to [...] 2:27 PM Procedure Code(s): --- Professional --- 96101, Colonoscopy, flexible; with removalof tumor(s), polyp(s), or other lesion(s) bysnare technique 23675, 59, Colonoscopy, flexible; withbiopsy, single or multiple Diagnosis Code(s): --- Professional --- Z86.010, Personal history of colonicpolyps D12.2, Benign neoplasm of ascending colon D12.3, Benign neoplasm of transverse colon (hepatic flexure or splenic flexure) CPT copyright 2021 [employer] [employer]. All rights reserved. The codes documented in this report are preliminary and upon precision assembly inspector reviewmay be revised to meet current compliance requirements. Scope In: 3:08:32 PM Scope Withdrawal Time 0 hours 12 minutes 23 seconds Scope Out: 3:25:26 PM Jon Olivier MD PROCEDURE ORD Final Res ult * ANTI HIV 1/2 [74824.0] (2022 12:35 PM HATCHERY MANAGER) HIV-1/HIV-2 ANTIBODY Non-Reacti ve Non-Reacti ve 03/19/2022 11:22 AM HATCHERY MANAGER [facility] Comment:HIV-1 p24 and HIV-1/ HIV-2 Ab not detected. Blood BLOOD SPECIMEN / Unknown Venipuncture / Unknown 2022 12:35 PM HATCHERY MANAGER 2022 12:35 PM HATCHERY MANAGER Juan Lombardi DO SEND OUTS Final Result [facility] [address] [place] [address], * ANTI HCV (01/11/2021 11:25 AM CDT) HEPATITIS C ANTIBODY Non-React jose Non-React jose 01/11/2021 10:36 PM CDT [facility] Comment:Antibodies to HCV no t detected; does not exclude the possibility of exposure to HCV. Blood BLOOD SPECIMEN / Unknown Venipuncture / Unknown 01/11/2021 11:25 AM CDT 01/11/2021 11:26 AM CDT Juan Lombardi DO SEND OUTS Final Result [facility] [address] [place] [address], [place] from Last 3 Months or Most Recently Relevant to Health Maintenance Insurance MEDICARE [place] ONLY Care Teams Yardage Control Operator Relationship Specialty [place] [id number] [place] [address] PCP - General Family Practice 01/10/21
--- NOTE | 2024-07-27 17:18 | ED_ITS ---
HPI - General Adult General Chief complaint: Extremity Pain/Injury, Upper Stated complaint: Right arm Pain Time Seen by Provider: 07/27/24 16:36 History of Present Illness HPI narrative: CC: Right Forearm Pain pt. seen here last week for same symptoms. did have xrays done. comes in today d/t pain issues. denies chest pain, shortness of breath, trouble breathing. 64-year-old man presenting to the emergency department with continued pain in the upper right forearm. Continues to be worse with pronation and somewhat with supination. It began 2 days after helping his son move which would have been around the 08 of July. On initial presentation there had been concern of a potential blood clot though seen by me seemed to have more of an elbow or forearm strain. X-rays of the elbow at that time were negative for avulsion fracture or other fracture. Pain he says is more intermittent. He is here without the arm sling which he says he is typically wearing though and still icing and doing recommended exercises. He feels that it is swollen like ?Julien?. It is now a little more than 2 weeks since onset of pain. Sounds like due to cardiac event family friend is worried about potential cardiac problem that could be probably causing issue in his right arm even. He would of been extra worried if it were in his left. Due to concerns as expressed initially I did request an ultrasound of the right upper extremity which was discussed as negative with automotive sales representative by the time I am seeing this patient. Related Data Home Medications ?Medication ?Instructions ?Recorded ?Confirmed atorvastatin 20 mg tablet 20 mg PO DAILY 04/08/22 07/27/24 sertraline 50 mg tablet 50 mg PO QDAY 04/08/22 07/27/24 amlodipine 5 mg tablet 5 mg PO DAILY 11/21/22 07/27/24 lisinopril 40 mg tablet 40 mg PO DAILY 07/27/24 07/27/24 Allergies Allergy/AdvReac Type Severity Reaction Status Date / Time No Known Drug Allergies Allergy Verified 07/27/24 16:33 Review of Systems Status of ROS: Reports: 6 or more systems reviewed and unremarkable except as noted in History and below PFSH PFS Social History Smoking Status: Never smoker Second hand tobacco smoke exposure: No How often do you have a drink containing alcohol: 4 or more times a week How many standard drinks containing alcohol do you have on a typical day: 1 or 2 AUDIT-C Alcohol total score: 4 Non-prescribed substance use: denies use Exam Narrative: Exam Narrative: Pleasant. NAD. Sitting calmly. Appears mildly hard of hearing. Examination again of the right upper extremity shows maybe a little fullness in the upper a inner forearm musculature. Really hard to reproduce the pain other than with pronation of the forearm. Pain is elicited in that area as mentioned. I do not appreciate any swelling discretely in the antecubital fossa. No pain in the ulnar groove. Well-perfused peripherally. Const: Vital Signs, click to edit/add: Vital Signs - 24 hr 07/27/24 16:31 Temperature 98.0 F Pulse Rate [Right Pulse Oximeter] 74 Respiratory Rate 18 Blood Pressure [Ri ght Upper Arm] 166/86 H Pulse Oximetry 99 Oxygen Delivery Me thod Room Air Documenting provider has reviewed patient's vital signs: yes Course Vital Signs Vital signs: Initial Vital Signs Temperature 98.0 F 07/27/24 16:31 Temperature Source Temporal Artery Scan 07/27/24 16:31 Pulse Rate 74 07/27/24 16:31 Respiratory Rate 18 07/27/24 16:31 Blood Pressure 166/86 H 07/27/24 16:31 Blood Pressure Mean 112 H 07/27/24 16:31 Blood Pressure Position Sitting 07/27/24 16:31 Pulse Oximetry 99 07/27/24 16:31 Oxygen Delivery Method Room Air 07/27/24 16:31 Vital Signs Temperature 98.0 F 07/27/24 16:31 Pulse Rate 74 07/27/24 16:31 Respiratory Rate 18 07/27/24 16:31 Blood Pressure 166/86 H 07/27/24 16:31 Pulse Oximetry 99 07/27/24 16:31 Oxygen Delivery Method Room Air 07/27/24 16:31 Temperature 98.0 F 07/27/24 16:31 Pulse Rate 67 07/27/24 21:20 Respiratory Rate 16 07/27/24 21:20 Blood Pressure 166/86 H 07/27/24 16:31 Pulse Oximetry 98 07/27/24 21:20 Oxygen Delivery Method Room Air 07/27/24 21:20 Medical Decision Making MDM Narrative Medical decision making narrative: This still seems to be a strain of the pronator/supinator musculature. Appears to have spared the epicondyles so no specific epicondylitis. No cyst was visualized on ultrasound. At this point still with discomfort perhaps re imaging which show a fracture that was missed the 1st time. I have requested three-view right elbow. Independent review of three view elbow x-ray by me does not reveal any bony abnormality or effusion. Spur is still noted off the olecranon and this is not the area of pain. Does have an appointment later in the week with primary care provider. See patient discharge plan for further discussion We do not see any hematoma. We do not see any fracture. You might benefit from some physical therapy +/- the exercises as recommended last time. Please discuss and follow-up with your primary care provider. Please take copies of these images which include an x-ray of your elbow with your 1st visit and today, an ultrasound and repeat x-ray images. Medical Records Medical records reviewed: Yes I reviewed the patient's medical records Discharge Plan Discharge Clinical Impression: Forearm strain Patient Disposition: Home, Self-Care Condition: Stable Additional Instructions: We do not see any hematoma. We do not see any fracture. You might benefit from some physical therapy +/- the exercises as recommended last time. Please discuss and follow-up with your primary care provider. Please take copies of these images which include an x-ray of your elbow with your 1st visit and today, an ultrasound and repeat x-ray images. Prescriptions: No Action atorvastatin 20 mg tablet 20 mg PO DAILY sertraline 50 mg tablet 50 mg PO QDAY amlodipine 5 mg tablet 5 mg PO DAILY lisinopril 40 mg tablet 40 mg PO DAILY Follow Up/Referrals: Provider,Not a Local [Primary Care Provider] - Stand Alone Forms: [employer] Info Instructions
--- OUTSIDE RECORDS SUMMARY | 2024-07-27 19:23 | XMS_ITS | Clinical Summary ---
Author Organization [employer] Address [address] [place] [id number] Care Team Providers Care Building Drafting Officer Name Role Phone Juan Lombardi DO Primary [...] Department Care Team Description 07/20/2024 Nurse Triage [facility] [id number] [place] [phone] Juan Lombardi, Arm Pain/problem 07/05/2024 Telephone [facility] [id number] [place] [phone] Juan Lombardi, Refill Request 07/05/2024 Refill [facility] [id number] [place] [phone] Juan Lombardi, Refill Request (Amlodipine) 06/29/2024 Refill [facility] [id number] [place] [phone] Juan Lombardi, Refill Request (Amlodipine) 05/25/2024 11:00 AM INTERNAL AUDITOR Office Visit [facility] [id number] [place] [phone] Juan Lombardi, Medicare ANNUAL (subsequent) Visit (Not fasting- [place] juice in the morning- The patient reports having a lack of energy. No other concerns noted. ) 05/24/2024 Travel 05/04/2024 Refill [facility] [id number] [place] [phone] Juan Lombardi, Refill Request (Atorvastatin, Amlodipine) 04/28/[address] [place] [address] Juan Lombardi, DO Refill Request (Lisinopril) from [...] Sex Assigned at Male 03/21/2023 10:44 PM INTERNAL AUDITOR Legal Sex Male 8:37 AM INTERNAL AUDITOR Gender Identity Male 03/21/2023 10:44 PM INTERNAL AUDITOR Sexual Orientation Straight 03/21/2023 10 :44 PM INTERNAL AUDITOR Obstetrics History Last Filed Vital Signs Vital Sign Reading Time Taken Comments Blood Pressure 128/80 05/25/2024 11:16 AM INTERNAL AUDITOR Pulse 68 05/25/2024 11:16 AM INTERNAL AUDITOR Temperature - - Respiratory Rate 18 07/17/2023 3:48 PM CDT Oxygen Saturation 98% 05/25/2024 11:16 AM INTERNAL AUDITOR Inhaled Oxygen Concentration - - Weight 123.8 kg (273 lb) 05/25/2024 11:16 AM INTERNAL AUDITOR Height 184.2 cm (6' 0.5) 05/25/2024 11:16 AM CS T Body Mass Index 36.52 05/25/2024 11:16 AM INTERNAL AUDITOR Plan of Treatment Upcoming Encounters Date Type Department Care Team (Late st Contact Info) Description 08/03/2024 11:00 AM CDT Office Visit [facility] [address] [place] [phone] [place] [address] [place] [address] Health Maintenance Due Date Last [...] NO DIFF Routine 05/25/2024 12: 00 AM INTERNAL AUDITOR Welcome to Medicare preventive visit COMP METABOLIC PANEL Routine 05/25/2024 12:00 AM INTERNAL AUDITOR Welcome to Medicare preventive visit LIPID PANEL W REFLEX MEASURED LDL Routine 05/25/2024 12:00 AM INTERNAL AUDITOR Other hyperlipidemia PSA TOTAL Routine 05/25/2024 12:00 AM INTERNAL AUDITOR History of prostate cancer COLONOSCOPY SCREENING Routine 07/17/2023 2:17 PM CDT History of colon polyps ANTI HIV 1/2 Routine 2022 12:35 PM INTERNAL AUDITOR Screening for HIV (human immunodeficiency virus) ANTI HCV Routine 01/11/2021 11:25 AM CDT Need for hepatitis C screening test from Last 3 Months or Most Recently Relevant to Health Maintenance Results * (ABNORMAL) LIPID PANEL W REFLEX MEASURED LDL (05/25/2024 12:00 AM INTERNAL AUDITOR) CHOLESTEROL, TOTAL 185 <200 mg/dL [facility] HDL CHOLESTEROL 43 > OR = 40 mg/dL [facility] TRIGLYCERIDES 173(H) <150 mg/dL [facility] [...] LDL-C. Jon PERALTA et al. OPAL. 2013;310(19): 4213-9726 (http://education.[employer]/faq/XOM498) CHOL/HDLC RATIO 4.3 <5.0 (calc) [facility] NON HDL CHOLESTEROL 142(H) <130 mg/dL (calc) [facility] Comment: For patients with diabetes plus 1 major ASCVD risk factor, treating to a non-HDL-C goal of <100 mg/dL (LDL-C of <70 mg/dL) is considered a therapeutic option. Blood BLOOD SPECIMEN / Unknown 05/25/2024 05/25/2024 11:59 AM INTERNAL AUDITOR Narrative [facility] - 05/26/2024 5:36 AM INTERNAL AUDITOR MULTIPLE TESTING PRIORITIES; ROUTINE TESTING TO FOLLOW. [employer] [facility] DO CHEMISTRY Final Result [facility] [address] [place] [address], [facility] [address] [place] [address] * CBC W PLT NO DIFF (05/25/2024 12:00 AM INTERNAL AUDITOR) WHITE BLOOD CELL COUNT 5.9 3.8 - 10.8 Thousand/u L [facility] (U RED BLOOD CELL COUNT 4.66 4.20 - 5.80 Million/uL [facility] (U HEMOGLOBIN 14.8 13.2 - 17.1 g/dL [facility] (U HEMATOCRIT 43.7 38.5 - 50.0 % [facility] (U MCV 93.8 80.0 - 100.0 fL [facility] (U MCH 31.8 27.0 - 33.0 pg [facility] (U MCHC 33.9 32.0 - 36.0 g/dL [facility] (U Comment: For adults, a slight decrease in the calculated MCHC value (in the range of 30 to 32 g/dL) is most likely not clinically significant; however, it should be interpreted with caution in correlation with other red cell parameters and the patient's clinical condition. RDW 12.6 11.0 - 15.0 % [facility] (U PLATELET COUNT 206 140 - 400 Thousand/u L [facility] (U MPV 8.5 7.5 - 12.5 fL [facility] (U Blood BLOOD SPECIMEN / Unknown 05/25/2024 05/25/2024 12:00 PM INTERNAL AUDITOR Narrative [facility] - 05/25/2024 12:41 PM INTERNAL AUDITOR SPLIT 05/25/2024 FROM [id number] [facility] DO HEMATOLOGY Final Result [facility] [address] [place] [address], [facility] (U [address] [place] [address] * PSA TOTAL (05/25/2024 12:00 AM INTERNAL AUDITOR) [facility] PSA, TOTAL <0.04 < OR = 4.00 ng/mL [facility] Comment: The total PSA value from this assay system is standardized against the WHO standard. The test result will be approximately 20% lower when compared to the equimolar-standardized total PSA ([place]). Comparison of serial PSA results should be interpreted with this fact in mind. This test was performed using the Siemens chemiluminescent method. Values obtained from different assay methods cannot be used interchangeably. PSA levels, regardless of value, should not be interpreted as absolute evidence of the presence or absence of disease. Blood BLOOD SPECIMEN / Unknown 05/25/2024 05/25/2024 11:59 AM INTERNAL AUDITOR Narrative [facility] - 05/26/2024 4:39 AM INTERNAL AUDITOR MULTIPLE TESTING PRIORITIES; ROUTINE TESTING TO FOLLOW. [employer] DO CHEMISTRY Final Result [employer] [facility] [address] [place] [address], [facility] [address] [place] [address] * COMP METABOLIC PANEL (05/25/2024 12:00 AM INTERNAL AUDITOR) GLUCOSE 96 65 - 99 mg/dL [facility] [...] SPECIMEN / Unknown 05/25/2024 05/25/2024 11:59 AM INTERNAL AUDITOR Narrative [facility] - 05/26/2024 5:36 AM INTERNAL AUDITOR MULTIPLE TESTING PRIORITIES; ROUTINE TESTING TO FOLLOW. [facility] Valenzuela Steichen DO CHEMISTRY Final Result [facility] [address] [place] [address], [facility] [address] [place] [address] * COLONOSCOPY (07/17/2023 2:27 PM CDT) 07/17/2023 [...] adequate candidate for conscious sedation. The endoscope [id number] was passed through the anus andadvanced to [...] 2:27 PM Procedure Code(s): --- Professional --- 63497, Colonoscopy, flexible; with removalof tumor(s), polyp(s), or other lesion(s) bysnare technique 48860, 59, Colonoscopy, flexible; withbiopsy, single or multiple Diagnosis Code(s): --- Professional --- Z86.010, Personal history of colonicpolyps D12.2, Benign neoplasm of ascending colon D12.3, Benign neoplasm of transverse colon (hepatic flexure or splenic flexure) CPT copyright 2021 [employer]. All rights reserved. The codes documented in this report are preliminary and upon orthopedic coder reviewmay be revised to meet current compliance requirements. Scope In: 3:08:32 PM Scope Withdrawal Time 0 hours 12 minutes 23 seconds Scope Out: 3:25:26 PM Jon Olivier MD PROCEDURE ORD Final Res ult * ANTI HIV 1/2 [61513.0] (2022 12:35 PM INTERNAL AUDITOR) HIV-1/HIV-2 ANTIBODY Non-Reacti ve Non-Reacti ve 03/19/2022 11:22 AM INTERNAL AUDITOR [facility] Comment:HIV-1 p24 and HIV-1/ HIV-2 Ab not detected. Blood BLOOD SPECIMEN / Unknown Venipuncture / Unknown 2022 12:35 PM INTERNAL AUDITOR 2022 12:35 PM INTERNAL AUDITOR Juan Lombardi DO SEND OUTS Final Result [facility] [address] [place] [address], * ANTI HCV (01/11/2021 11:25 AM CDT) HEPATITIS C ANTIBODY Non-React jose Non-React jose 01/11/2021 10:36 PM CDT [facility] Comment:Antibodies to HCV no t detected; does not exclude the possibility of exposure to HCV. Blood BLOOD SPECIMEN / Unknown Venipuncture / Unknown 01/11/2021 11:25 AM CDT 01/11/2021 11:26 AM CDT Juan Lombardi DO SEND OUTS Final Result [facility] [address] [place] [address], [place] from Last 3 Months or Most Recently Relevant to Health Maintenance Insurance MEDICARE [place] ONLY Care Teams Building Drafting Officer Relationship Specialty [place] [address] [place] [address] PCP - General Family Practice 01/10/21
--- NOTE | 2024-07-27 19:58 | CRLHL7_ITS ---
For Patients: As a result of the Century Cures Act, medical imaging exams and procedure reports are released immediately into your electronic medical record. You may view this report before your referring provider. If you have questions, please contact your health care provider. INDICATION: Persistent upper forearm, lower antecubital fossa elbow pain TECHNIQUE: Elbow radiograph 3 views right COMPARISON: 07/20/2024 FINDINGS: Bone: No acute fractures or aggressive bone lesions are identified. An olecranon enthesophyte is noted. Joint: The elbow joint is unremarkable. No significant displacement of the anterior or posterior fat pads noted to suggest an effusion. Soft tissue: Unremarkable. No radiopaque foreign bodies are seen. IMPRESSION: 1. No acute osseous injuries or abnormalities are noted. Dictated by: Bridger Ludwig MD @ 07/27/2024 20:47:39 (Electronically Signed)
[2024-07-27 21:20] VITALS: PULSE 67; RESP 16; O2SAT 98
== END 2024-07-27 21:21 | disposition home or self-care (01) ==
PROVIDERS: Emergency Provider Family Medicine
DX: S56.911A Strain of unspecified muscles, fascia and tendons at forearm level, right arm, initial encounter (principal); X50.9XXA Other and unspecified overexertion or strenuous movements or postures, initial encounter
CPT/HCPCS: 73080; 93971; 99283; 99284